=== PATIENT | female | born 1980 | race Caucasian/White ===

== ENCOUNTER 2018-06-26 20:20 | Emergency (ER) | payer MEDICAID, OTHER ==
[2018-06-26 20:42] VITALS: BP 109/76; PULSE 71; RESP 18; TEMP 98.9; O2SAT 97
--- NOTE | 2018-06-26 22:10 | C.PDOC ---
History Of Present Illness 37 year old female presents to the ED c/o "tail bone" pain s/p falling on her buttocks a week ago. Patient reports also feeling tingling sensation to her buttocks radiating to her bilateral legs. Patient also c/o neck pain, denies direct neck injury. Patient reports trying OTC aleve with no relief. Patient denies LOC, headache, nausea, vomiting, weakness, numbness. Time Seen by Provider: 06/26/18 20:55 Chief Complaint (Nursing): Back Pain History Per: Patient History/Exam Limitations: no limitations Onset/Duration Of Symptoms: Days Current Symptoms Are (Timing): Still Present Quality Of Discomfort: "Pain" Recent travel outside of the [place]: No Additional History Per: Patient Past Medical History Reviewed: Historical Data, Nursing Documentation, Vital Signs Vital Signs: Last Vital Signs Temp 98.9 F 06/26/18 20:38 Pulse 71 06/26/18 20:38 Resp 18 06/26/18 20:38 BP 109/76 06/26/18 20:38 Pulse Ox 97 06/26/18 20:38 - Medical History PMH: No Chronic Diseases Denies: Chronic Kidney Disease Surgical History: No Surg Hx Family History: States: Unknown Family Hx - Social History Hx Tobacco Use: No Hx Alcohol Use: Yes Hx Substance Use: No - Immunization History Hx Tetanus Toxoid Vaccination: No Hx Influenza Vaccination: No Hx Pneumococcal Vaccination: No Review Of Systems Constitutional: Negative for: Fever, Chills Respiratory: Negative for: Cough, Shortness of Breath Gastrointestinal: Negative for: Nausea, Vomiting, Abdominal Pain Musculoskeletal: Positive for: Neck Pain, Back Pain, Leg Pain Skin: Negative for: Rash Neurological: Negative for: Weakness, Numbness, Headache, Dizziness Physical Exam - Physical Exam Appears: Non-toxic, No Acute Distress Skin: Normal Color, Warm, Dry, No Ecchymosis Head: Atraumatic, Normacephalic Eye(s): bilateral: Normal Inspection Neck: Normal ROM, No Midline Cervical Tenderness, Supple Chest: Symmetrical Cardiovascular: Rhythm Regular Respiratory: Normal Breath Sounds, No Rales, No Rhonchi, No Wheezing Gastrointestinal/Abdominal: Soft, No Tenderness, No Distention, No Guarding, No Rebound Rectal: Deferred Back: No CVA Tenderness, No Vertebral Tenderness, No Muscle Spasm, No Paraspinal Tenderness, No Other (coccygeal tenderness on palpation) Extremity: Normal ROM, No Tenderness, No Swelling Neurological/Psych: Oriented x3, Normal Speech, Normal Motor, Normal Sensation Gait: Steady ED Course And Treatment O2 Sat by Pulse Oximetry: 97 (ON RA) Pulse Ox Interpretation: Normal Progress Note: Patient advised to use NSAIDs for pain management. Patient advised to follow up with PMD and return precautions were discussed. Disposition Counseled Patient/Family Regarding: Diagnosis - Disposition Disposition: HOME/ ROUTINE Disposition Time: 22:07 Condition: STABLE Additional Instructions: Please follow up with PMD Take medications as directed Return to ER if worse Prescriptions: Cyclobenzaprine [Cyclobenzaprine HCl] 10 mg PO HS #10 tab Naproxen [Naprosyn] 1 tab PO BID PRN #25 tab PRN Reason: Pain Instructions: Coccyx Injury (DC) Forms: [employer] ([place]) - Clinical Impression Clinical Impression: Coccyx pain, Neck muscle strain - PA / CUSTODY OFFICER / Resident Statement MD/DO has reviewed & agrees with the documentation as recorded. - Scribe Statement The provider has reviewed the documentation as recorded by the Scribe Jones Young All medical record entries made by the Scribe were at my direction and personally dictated by me. I have reviewed the chart and agree that the record accurately reflects my personal performance of the history, physical exam, med [facility] decision making, and the department course for this patient. I have also personally directed, reviewed, and agree with the discharge instructions and disposition.
== END 2018-06-26 22:20 | disposition home or self-care (01) ==
LOC: C.ER 20:20
DX: S16.1XXA Strain of muscle, fascia and tendon at neck level, initial encounter (principal); W18.30XA Fall on same level, unspecified, initial encounter; M53.3 Sacrococcygeal disorders, not elsewhere classified